=== PATIENT | female | born 1955 | race Caucasian/White ===

== ENCOUNTER 2021-01-19 08:58 | Outpatient (REF) | payer OTHER, SELFPAY ==
[2021-01-19 11:32] LABS: MANUAL DIFF FLAG NO
[2021-01-19 11:53] LABS: Eosinophils Absolute Auto 0.1 X10*3/uL (0.0-0.4); Eosinophils Percent Auto 1.5 % (0-4); Hematocrit 39.2 % (37-47); Hemoglobin 12.8 g/dl (12.0-16.0); Lymphocytes Absolute Auto 1.3 X10*3/uL (1.2-4.9); Lymphocytes Percent Auto 33.2 % (20-40); Mean Corpuscular HGB Conc 32.7 g/dl (31.0-35.0); Mean Corpuscular Hemoglobin 33.3 pg (27.0-33.0); Mean Corpuscular Volume 102.1 fL (80-98); Mean Platelet Volume 11.2 fL (9.4-12.3); Monocytes Absolute Auto 0.4 X10*3/uL (0.1-1.2); Monocytes Percent Auto 10.8 % (2-11); Neutrophils Absolute Auto 2.1 X10*3/uL (2.0-8.3); Neutrophils Percent Auto 53.5 % (45-73); Platelet Count 226 X10*3/uL (160-400); Red Blood Count 3.84 X10*6/uL (4.20-5.50); Red Cell Distribution Width 12.2 % (11.0-16.0); White Blood Count 3.9 X10*3/uL (4.8-10.8)
[2021-01-19 11:56] LABS: C Reactive Protein 0.11 mg/dL (< or = 0.50); Iron 97 mcg/dL (30-160); Percent Iron Saturation 30 % (15-50); Total Iron Binding Capacity 323 mcg/dL (228-428); Unsaturated Iron Binding 226 ug/dL
[2021-01-19 12:18] LABS: Ferritin 100 ng/mL (10-250); Thyroid Stimulating Hormone 0.57 uIU/mL (0.32-4.0); Vitamin D 25-OH Total 16.9 ng/mL (>30)
[2021-01-19 12:31] LABS: Vitamin B12 1374 pg/mL (200-900)
[2021-01-19 12:40] LABS: Erythrocyte Sedimentation Rate 14 MM/HR (0-20)
[2021-01-20 05:32] LABS: EBV-VCA IgM Ab <36.00 U/mL
== END 2021-01-19 08:59 | disposition home or self-care (01) ==
LOC: HO.MANLDS 08:58
PROVIDERS: PCP Internal Medicine; Visit Provider Physician Assistant
DX: R53.83 Other fatigue (principal)
CPT/HCPCS: 36415; 82306; 82607; 82728; 82746; 83540; 84443; 85025; 85652; 86140; 86664; 86665

== ENCOUNTER 2021-08-23 15:17 | Outpatient (REF) | payer OTHER, SELFPAY ==
--- NOTE | ~2021-08-23 | XR_ITS ---
EXAMINATION: XR SINUSES CLINICAL INFORMATION: Dizziness COMPARISON: None TECHNIQUE: 4 views of the sinuses were obtained. FINDINGS: Paranasal sinuses appear clear without air-fluid levels. Mastoid air cells are well aerated. No fractures are identified. No radiodense foreign bodies. XR/XR sinus min 3V IMPRESSION: No radiographic evidence to suggest acute sinusitis.
== END 2021-08-23 15:18 | disposition home or self-care (01) ==
LOC: HO.XRAY 15:17
PROVIDERS: PCP Internal Medicine; Visit Provider Physician Assistant
DX: R42 Dizziness and giddiness (principal)
CPT/HCPCS: 70220

== ENCOUNTER 2021-08-24 13:10 | Outpatient (REF) | payer OTHER, SELFPAY ==
--- NOTE | ~2021-08-24 | US_ITS ---
EXAMINATION: US ABDOMEN COMPLETE CLINICAL INFORMATION: Left lower quadrant pain. COMPARISON: None TECHNIQUE: Real-time imaging of the abdominal viscera. FINDINGS: PANCREAS: Normal. ABDOMINAL AORTA: The proximal, mid, and distal segments are normal in caliber. INFERIOR VENA CAVA: Visualized portions are normal. LIVER: The liver is normal in size. The liver contour is normal. Parenchymal echogenicity is normal. There is no intrahepatic biliary duct dilatation seen. Within the left hepatic lobe, a 2.7 x 3.2 x 4.4 cm heterogeneously hyperechoic, circumscribed mass is seen. Within the right hepatic lobe anteriorly, a 0.7 x 0.6 x 0.7 cm hyperechoic, circumscribed mass is seen. Within the right hepatic lobe, a 0.8 cm in maximal diameter simple cyst is seen. Within the left hepatic lobe, a 1.9 cm maximal diameter simple cyst is seen. GALLBLADDER: There is mild echogenic gallbladder sludge. The gallbladder is physiologically distended without evidence of stones, polyps, wall thickening or pericholecystic fluid. COMMON BILE DUCT: Normal in caliber measuring 0.4 cm in diameter. RIGHT KIDNEY: Normal. No hydronephrosis. No renal calculi or focal parenchymal lesions. The kidney measures 9.3 cm in maximum dimension. LEFT KIDNEY: At the interpolar aspect, a 4 mm nonobstructing calculus is seen. No hydronephrosis or focal parenchymal lesions. The kidney measures 10.4 cm in maximum dimension. SPLEEN: Normal. The spleen measures 6.4 cm in maximum dimension. FREE FLUID: None. US/US abdomen complete IMPRESSION: 1. There are hyperechoic masses within the bilateral hepatic lobes, with ultrasound features characteristic for benign hemangiomas. These are of doubtful clinical significance. If of clinical concern (i.e. history of hepatocellular disease or known malignancy), consider further evaluation with the dynamic CT or MRI. 2. Simple cysts are noted within the bilateral kidneys. 3. A 4 mm nonobstructing left renal calculus is seen. No right renal calculus is seen. No hydronephrosis is noted bilaterally.
== END 2021-08-24 13:11 | disposition home or self-care (01) ==
LOC: HO.HMGCX 13:10
PROVIDERS: PCP Internal Medicine; Visit Provider Physician Assistant
DX: R10.32 Left lower quadrant pain (principal)
CPT/HCPCS: 76700

== ENCOUNTER 2021-08-29 15:20 | Outpatient (REF) | payer OTHER, SELFPAY ==
[2021-08-29 18:33] LABS: MANUAL DIFF FLAG NO
[2021-08-29 18:39] LABS: Basophils Absolute Auto 0.1 X10*3/uL (0.0-0.2); Basophils Percent Auto 1.2 % (0-2); Eosinophils Absolute Auto 0.1 X10*3/uL (0.0-0.4); Eosinophils Percent Auto 1.9 % (0-4); Hematocrit 33.3 % (37.0-47.0); Hemoglobin 11.1 g/dl (12.0-16.0); Imm Gran Abs Auto 0.01 X10*3/uL (0.00-0.03); Imm Gran Pct Auto 0.2 % (0.0-0.4); Lymphocytes Absolute Auto 1.6 X10*3/uL (1.2-4.9); Lymphocytes Percent Auto 36.4 % (20-40); Mean Corpuscular HGB Conc 33.3 g/dl (31.0-35.0); Mean Corpuscular Hemoglobin 33.8 pg (27.0-33.0); Mean Corpuscular Volume 101.5 fL (80.0-98.0); Mean Platelet Volume 11.2 fL (9.4-12.3); Monocytes Absolute Auto 0.3 X10*3/uL (0.1-1.2); Monocytes Percent Auto 5.9 % (2-11); Neutrophils Absolute Auto 2.3 x10*3/uL (2.0-8.3); Neutrophils Percent Auto 54.4 % (45-73); Platelet Count 175 X10*3/uL (160-400); Red Blood Count 3.28 X10*6/uL (4.20-5.50); Red Cell Distribution Width 12.6 % (11.0-16.0); White Blood Count 4.3 X10*3/uL (4.8-10.8)
[2021-08-29 18:47] LABS: Alanine Aminotransferase 18 U/L (0-31); Albumin Level 3.7 g/dL (3.5-5.0); Alkaline Phosphatase 63 U/L (39-117); Anion Gap 11 (12-20); Aspartate Amino Transferase 19 U/L (5-31); Bilirubin Total 0.2 mg/dL (0.0-1.0); Blood Urea Nitrogen 24 mg/dL (9-16); Calcium 9.4 mg/dL (8.4-10.2); Carbon Dioxide 23 mmol/L (22-29); Chloride 109 mmol/L (96-108); Estimated Glomerular Filt Rate 49; Glucose Random 248 mg/dL (60-115); Iron 72 mcg/dL (30-160); Percent Iron Saturation 31 % (15-50); Potassium 3.9 mmol/L (3.3-5.1); Rheumatoid Factor < 15.0 IU/mL (<15.0); Sodium 139 mmol/L (135-145); Total Iron Binding Capacity 232 mcg/dL (228-428); Total Protein 6.4 g/dL (6.5-8.0); Unsaturated Iron Binding 160 ug/dL
[2021-08-29 19:10] LABS: Ferritin 356 ng/mL (10-250); Free T4 (Free Thyroxine) 0.86 ng/dL (0.71-1.85); Vitamin D 25-OH Total 86.7 ng/mL (>30)
[2021-08-29 19:22] LABS: Folate 16.8 ng/mL (> or = 4.0); Vitamin B12 1463 pg/mL (200-900)
[2021-08-29 19:29] LABS: Erythrocyte Sedimentation Rate 36 MM/HR (0-20)
[2021-08-30 15:26] LABS: Calcium (PTHI) 9.1 mg/dL (8.6-10.4); PTHI 22 pg/mL (14-64)
[2021-08-31 08:32] LABS: Lyme Abs Screen <0.90 index
[2021-08-31 22:37] LABS: Anti Nuclear Antibody Screen NEGATIVE (NEGATIVE)
== END 2021-08-29 15:21 | disposition home or self-care (01) ==
LOC: HO.MANLDS 15:20
PROVIDERS: PCP Physician Assistant; Visit Provider Physician Assistant
DX: R53.83 Other fatigue (principal)
CPT/HCPCS: 36415; 80053; 82306; 82607; 82728; 82746; 83540; 83970; 84439; 85025; 85652; 86038; 86039; 86140; 86431; 86617; 86618

== ENCOUNTER 2021-09-03 08:42 | Outpatient (REF) | payer OTHER, SELFPAY ==
[2021-09-03 11:07] LABS: Estimated Average Glucose 131 mg/dL; Hemoglobin A1c % 6.2 %
== END 2021-09-03 08:43 | disposition home or self-care (01) ==
LOC: HO.MANLDS 08:42
PROVIDERS: PCP Internal Medicine; Visit Provider Internal Medicine
DX: E11.9 Type 2 diabetes mellitus without complications (principal)
CPT/HCPCS: 36415; 83036

== ENCOUNTER 2021-09-28 07:40 | Outpatient (REF) | payer OTHER, SELFPAY ==
[2021-09-28 11:01] LABS: MANUAL DIFF FLAG NO
[2021-09-28 11:02] LABS: Basophils Absolute Auto 0.1 X10*3/uL (0.0-0.2); Basophils Percent Auto 1.1 % (0-2); Eosinophils Absolute Auto 0.1 X10*3/uL (0.0-0.4); Eosinophils Percent Auto 2.1 % (0-4); Hematocrit 34.3 % (37.0-47.0); Hemoglobin 11.2 g/dl (12.0-16.0); Lymphocytes Absolute Auto 1.7 X10*3/uL (1.2-4.9); Lymphocytes Percent Auto 38.9 % (20-40); Mean Corpuscular HGB Conc 32.7 g/dl (31.0-35.0); Mean Corpuscular Hemoglobin 33.2 pg (27.0-33.0); Mean Corpuscular Volume 101.8 fL (80.0-98.0); Mean Platelet Volume 10.7 fL (9.4-12.3); Monocytes Absolute Auto 0.4 X10*3/uL (0.1-1.2); Monocytes Percent Auto 8.5 % (2-11); Neutrophils Absolute Auto 2.2 x10*3/uL (2.0-8.3); Neutrophils Percent Auto 49.4 % (45-73); Platelet Count 235 X10*3/uL (160-400); Red Blood Count 3.37 X10*6/uL (4.20-5.50); Red Cell Distribution Width 14.6 % (11.0-16.0); White Blood Count 4.4 X10*3/uL (4.8-10.8)
[2021-09-28 11:41] LABS: Erythrocyte Sedimentation Rate 25 MM/HR (0-20)
[2021-09-28 11:46] LABS: Alanine Aminotransferase 17 U/L (0-31); Albumin Level 4.1 g/dL (3.5-5.0); Alkaline Phosphatase 63 U/L (39-117); Anion Gap 13 (12-20); Aspartate Amino Transferase 19 U/L (5-31); Bilirubin Total 0.5 mg/dL (0.0-1.0); Blood Urea Nitrogen 25 mg/dL (9-16); C Reactive Protein 0.17 mg/dL (< or = 0.50); Calcium 9.4 mg/dL (8.4-10.2); Carbon Dioxide 23 mmol/L (22-29); Chloride 107 mmol/L (96-108); Estimated Glomerular Filt Rate 57; Glucose Fasting 99 mg/dL (60-99); Iron 91 mcg/dL (30-160); Percent Iron Saturation 33 % (15-50); Potassium 4.3 mmol/L (3.3-5.1); Sodium 139 mmol/L (135-145); Total Iron Binding Capacity 272 mcg/dL (228-428); Total Protein 6.7 g/dL (6.5-8.0); Unsaturated Iron Binding 181 ug/dL
[2021-09-28 11:54] LABS: Rheumatoid Factor < 15.0 IU/mL (<15.0)
[2021-09-28 11:56] LABS: Ferritin 189 ng/mL (10-250); Free T4 (Free Thyroxine) 0.91 ng/dL (0.71-1.85); Thyroid Stimulating Hormone 0.99 uIU/mL (0.32-4.0); Vitamin D 25-OH Total 72.4 ng/mL (>30)
[2021-09-28 12:29] LABS: Folate > 20.0 ng/mL (> or = 4.0); Vitamin B12 918 pg/mL (200-900)
[2021-10-01 17:11] LABS: Anti Nuclear Antibody Screen NEGATIVE (NEGATIVE)
== END 2021-09-28 07:41 | disposition home or self-care (01) ==
LOC: HO.MANLDS 07:40
PROVIDERS: PCP Physician Assistant; Visit Provider Physician Assistant
DX: R53.83 Other fatigue (principal)
CPT/HCPCS: 36415; 80053; 82306; 82607; 82728; 82746; 83540; 84439; 84443; 85025; 85652; 86038; 86039; 86140; 86431

== ENCOUNTER 2022-05-14 07:41 | Outpatient (REF) | payer OTHER, SELFPAY ==
[2022-05-14 11:24] LABS: MANUAL DIFF FLAG NO
[2022-05-14 11:44] LABS: Basophils Percent Auto 0.8 % (0-2); Eosinophils Absolute Auto 0.1 X10*3/uL (0.0-0.4); Hematocrit 35.9 % (37.0-47.0); Hemoglobin 11.8 g/dl (12.0-16.0); Imm Gran Abs Auto 0.01 X10*3/uL (0.00-0.03); Imm Gran Pct Auto 0.2 % (0.0-0.4); Lymphocytes Absolute Auto 1.2 X10*3/uL (1.2-4.9); Lymphocytes Percent Auto 23.9 % (20-40); Mean Corpuscular HGB Conc 32.9 g/dl (31.0-35.0); Mean Corpuscular Hemoglobin 33.9 pg (27.0-33.0); Mean Corpuscular Volume 103.2 fL (80.0-98.0); Mean Platelet Volume 11.1 fL (9.4-12.3); Monocytes Absolute Auto 0.5 X10*3/uL (0.1-1.2); Monocytes Percent Auto 9.7 % (2-11); Neutrophils Absolute Auto 3.2 x10*3/uL (2.0-8.3); Neutrophils Percent Auto 64.4 % (45-73); Platelet Count 221 X10*3/uL (160-400); Red Blood Count 3.48 X10*6/uL (4.20-5.50); Red Cell Distribution Width 13.2 % (11.0-16.0)
[2022-05-14 12:08] LABS: Alanine Aminotransferase 15 U/L (0-31); Alkaline Phosphatase 60 U/L (39-117); Anion Gap 15 (12-20); Aspartate Amino Transferase 20 U/L (5-31); Bilirubin Total 0.4 mg/dL (0.0-1.0); Blood Urea Nitrogen 20 mg/dL (9-16); C Reactive Protein 0.12 mg/dL (< or = 0.50); Calcium 9.4 mg/dL (8.4-10.2); Carbon Dioxide 26 mmol/L (22-29); Chloride 105 mmol/L (96-108); Cholesterol 274 mg/dL; Estimated Glomerular Filt Rate 60; Gamma Glutamyl Transpeptidase 14 U/L (7-33); Glucose Random 121 mg/dL (60-115); HDL Cholesterol 104 mg/dL; LDL Cholesterol Calculated 155 mg/dl; Potassium 5.1 mmol/L (3.3-5.1); Sodium 141 mmol/L (135-145); Total Protein 6.4 g/dL (6.5-8.0); Triglycerides 75 mg/dL
[2022-05-14 12:32] LABS: Ferritin 45 ng/mL (10-250)
== END 2022-05-14 07:42 | disposition home or self-care (01) ==
LOC: HO.MANLDS 07:41
PROVIDERS: Visit Provider Physician Assistant
DX: Z00.00 Encounter for general adult medical examination without abnormal findings (principal)
CPT/HCPCS: 36415; 80053; 80061; 82728; 82977; 85025; 86140

== ENCOUNTER 2022-06-03 16:40 | Outpatient (REF) | payer OTHER, SELFPAY ==
[2022-06-03 17:42] LABS: TSH reflex Free T4 0.58 uIU/mL (0.32-4.0)
[2022-06-04 07:13] LABS: HIV Num 1 12.15 S/CO (0.00-0.99)
[2022-06-04 08:21] LABS: HIV AB/AG Nonreactive (Nonreactive); HIV Num 2 0.05 S/CO; HIV Num 3 0.05 S/CO
[2022-06-05 12:18] LABS: Transglutaminase IgA <1.0 U/mL
[2022-06-05 15:02] LABS: Immunoglobulin A 249 mg/dL (70-320)
== END 2022-06-03 16:41 | disposition home or self-care (01) ==
LOC: HO.LAB 16:40
PROVIDERS: PCP Internal Medicine; Visit Provider Internal Medicine
DX: Z11.4 Encounter for screening for human immunodeficiency virus [HIV] (principal); D64.9 Anemia, unspecified; K59.00 Constipation, unspecified
CPT/HCPCS: 36415; 82784; 84443; 86364; 87389

== ENCOUNTER 2022-11-07 09:10 | Day surgery (SDC) | payer OTHER, SELFPAY ==
[2022-11-05 13:17] VITALS: BMI 22.8
--- NOTE | 2022-11-07 09:22 | MHC.SHP ---
Pre-Procedural Eval Section A Date of Service: 11/07/22 Section B Chief Complaint: Encounter for screening for malignant neoplasm of Details of Present Illness: PMH: Hypertension kidney stone Asthma Surgical History History of gastrointestinal surgery Hx of section Hx of tonsillectomy Relevant Family History (Specify if Yes): No Present Medications: see Short Stay Collaborative assessment Allergies: Allergies Allergy/AdvReac Type Severity Reaction Status Date / Time fluticasone Allergy Severe thrush Verified 11/07/22 09:13 [From Advair Diskus] salmeterol Allergy Severe thrush Verified 11/07/22 09:13 [From Advair Diskus] Faqtuaf-UTG-HgW Reductase Allergy Severe Joint Pain Verified 11/07/22 09:13 Inhibitor beclomethasone Allergy Unknown Unknown Verified 11/07/22 09:13 [From Qvar RediHaler] Corticosteroids Allergy Unknown Unknown Verified 11/07/22 09:13 (Glucocorticoids) Review of Systems Review of Systems Comment: 10 point ROS negative Exam Exam Comment: Gen appear: No acute distress HEENT: no icterus Chest: No overt resp distress Abd: soft, nontender, nondistended Psych: Stable affect, answering questions appropriately Neuro: A/Ox3 noted to move all extremities spontaneously Ext: no peripheral edema Plan I have reviewed the history and physical and performed a pertinent physical examination on my patient. No changes have occurred unless specified. Time Spent With Patient Time: Total time managing care of this patient today ____ minutes.
--- NOTE | 2022-11-07 09:23 | W.PM.OPN ---
Operative Note Operative Note Date of Service: 11/07/22 Narrative: Procedure: Colonoscopy Indication: Screening Endoscopist: Ansley Alas MD Anesthesia Provider: Dr Angélica Messina Anesthesia type: MAC Instrument: Olympus [id number]-H190L Consent: Indication, risks vs benefits, and alternatives were discussed with the patient who gave written informed consent to proceed. EKG, pulse, pulse oximetry and blood pressure were monitored throughout the procedure. Please see anesthesia flowsheet. Procedure: The patient was brought to the procedure room and placed in the left lateral decubitus position. IV medications were administered by the anesthesia provider in attendance. A digital rectal exam was performed which was normal. The colonoscope was then inserted through the anus and advanced through the colon to the hepatic flexure. Mucosa was carefully examined under high definition white light as the instrument was slowly withdrawn in a retrograde panoramic fashion. Retroflexion was performed in rectum. The procedure was not difficult. There were no immediate obvious complications. The quality of the prep was BBPS: 1+1+N/A = inadequate. Limitations: Poor prep. Findings: Mucosa: Semi solid and liquid opaque stool was seen in the entire colon. Despite extensive flushing and suctioning, could not visualize lumen at hepatic flexure and therefore could not get around to cecum. Impression: 1. Incomplete colonoscopy due to poor prep Recommendations: - Repeat colonoscopy will be rebooked within 6 months. - Patient will be advised 2 days of CLD and 3 days of daily Miralax prior to starting split prep before the next procedure.
[2022-11-07] MEDS: Lactated Ringers 1,000 ML 50 ML IVCONT (09:32)
[2022-11-07 09:47] VITALS: BP 119/73; PULSE 84; RESP 18; TEMP 36.6; O2SAT 96
[2022-11-07 10:28] VITALS: BP 93/40; PULSE 83; RESP 18; TEMP 36.3; O2SAT 94
[2022-11-07 10:43] VITALS: BP 110/61; PULSE 78; RESP 18; TEMP 36.1; O2SAT 96
--- NOTE | 2022-11-07 11:00 | HO.ANESPROP2 ---
HPI - Anesthesia Eval Consult details Narrative: screening constipation PMFSH Active Problems Active Problems: All Active Problems (Updated 11/01/22 @ 14:55 by Cristina Hernandez RN) Anemia (Acute) Liver mass (Acute) Megaloblastic anemia (Acute) Chronic idiopathic constipation (Acute) Past Medical History Medical History Anemia Anxiety Asthma CVA (cerebral vascular accident) Depression GERD (gastroesophageal reflux disease) HTN (hypertension) Skin cancer Family History Family History Father No problems noted. Mother Breast CA Heart attack Dementia Brother Lung cancer Family history of problems with anesthesia: No Surgical History Surgical History History of gastrointestinal surgery Hx of section Hx of tonsillectomy History of Problems with Anesthesia: No Social History Social History Patient Tobacco Use Status: Never used Tobacco Are you DNR?: No Advance Directives: No Advance Directives Information Provided: Yes Nutrition Risks: No Nutritional Risk Meds Allergies Allergy/AdvReac Type Severity Reaction Status Date / Time fluticasone Allergy Severe thrush Verified 11/07/22 09:13 [From Advair Diskus] salmeterol Allergy Severe thrush Verified 11/07/22 09:13 [From Advair Diskus] Cjwhdhe-FCW-TkW Reductase Allergy Severe Joint Pain Verified 11/07/22 09:13 Inhibitor beclomethasone Allergy Unknown Unknown Verified 11/07/22 09:13 [From Qvar RediHaler] Corticosteroids Allergy Unknown Unknown Verified 11/07/22 09:13 (Glucocorticoids) Active Medications: Current Medications Lactated Ringer's (Lr) 1,000 mls @ 50 mls/hr IVCONT .Q20H JORGE LUIS Last Admin: 11/07/22 09:32 Dose: 50 mls/hr Home Medications Medication Instructions Recorded Confirmed Last Taken Type acyclovir 200 mg capsule 200 mg PO TID 06/03/22 11/01/22 Unknown History albuterol sulfate 90 mcg/actuation 2 puff inhalation Q6H PRN Wheezing 06/03/22 11/01/22 Unknown History aerosol inhaler cholecalciferol (vitamin D3) 125 125 mcg PO DAILY 06/03/22 11/01/22 Unknown History mcg (5,000 unit) capsule lisinopril 20 mg tablet 20 mg PO BID 06/03/22 11/01/22 Unknown History lorazepam 1 mg tablet 1 mg PO TID PRN Anxiety 06/03/22 11/01/22 Unknown History quercetin 500 mg capsule mg PO 06/03/22 Unknown History umeclidinium 62.5 mcg-vilanterol 1 inh inhalation DAILY 06/03/22 11/01/22 Unknown History 25 mcg/actuation powdr for inhalation (Anoro Ellipta) vitamin A palmitate 7,500 mcg 7,500 mcg PO DAILY 06/03/22 11/01/22 Unknown History (25,000 unit) capsule (A-25 (vit A palmitate)) zafirlukast 20 mg tablet 20 mg PO BID 06/03/22 Unknown History zolpidem 10 mg tablet 10 mg PO BEDTIME PRN Insomnia 06/03/22 11/01/22 Unknown History linaclotide 145 mcg capsule 145 mcg PO DAILY 11/01/22 11/01/22 Unknown History (Linzess) Exam Exam Date and Time: November 07, 2022 1100 Height,Weight and Vital Signs: Height 5 ft 4 in Weight 60.328 kg Last Vital Signs Temp 97.0 F 11/07/22 10:43 Pulse 78 11/07/22 10:43 Resp 18 11/07/22 10:43 BP 110/61 11/07/22 10:43 Pulse Ox 96 11/07/22 10:43 O2 Del Method 11/07/22 10:43 Airway Mallampati Class: II TM Dist: >3cm Neck ROM: Full Heart: rr Lungs: cta Assessment and Plan Assessment Anesthesia Assessment: Anesthesia Plan Discussed, Smoking Cess. Discussed and Chart Reviewed Final Anesthetic Review Family History of Problems with Anesthesia: No History of Problems with Anesthesia: No NPO: Yes ASA Class: II Final Preanesthetic Review: No Changes in Pt Med Stat Patient Risk: Low Procedure Risk: Low Anesthetic Plan Anesthetic Plan: MAC: Disposition: Standard PACU
== END 2022-11-07 11:16 | disposition home or self-care (01) ==
PROVIDERS: PCP Internal Medicine; Visit Provider Internal Medicine
PROC: 0DJD8ZZ Inspection of Lower Intestinal Tract, Via Natural or Artificial Opening Endoscopic (ICD-10-PCS; CPT 45378; principal; 2022-11-07 10:00)
DX: Z12.11 Encounter for screening for malignant neoplasm of colon (principal); Z91.199 Patient's noncompliance with other medical treatment and regimen due to unspecified reason; I10 Essential (primary) hypertension; N20.0 Calculus of kidney; J45.909 Unspecified asthma, uncomplicated; Z79.51 Long term (current) use of inhaled steroids; Z79.899 Other long term (current) drug therapy
CPT/HCPCS: 45378

== ENCOUNTER → 2022-11-18 15:36 | Outpatient (BNVA) | payer OTHER, SELFPAY | PROVIDERS: PCP Internal Medicine; Visit Provider Internal Medicine | DX: Z13.89 Encounter for screening for other disorder (principal) ==

== ENCOUNTER 2022-12-11 07:25 | Outpatient (REF) | payer OTHER, SELFPAY ==
[2022-12-11 11:25] LABS: MANUAL DIFF FLAG NO
[2022-12-11 12:08] LABS: Basophils Absolute Auto 0.1 X10*3/uL (0.0-0.2); Basophils Percent Auto 1.4 % (0-2); Eosinophils Absolute Auto 0.1 X10*3/uL (0.0-0.4); Eosinophils Percent Auto 2.1 % (0-4); Hematocrit 35.8 % (37.0-47.0); Imm Gran Abs Auto 0.01 X10*3/uL (0.00-0.03); Imm Gran Pct Auto 0.2 % (0.0-0.4); Lymphocytes Absolute Auto 1.6 X10*3/uL (1.2-4.9); Lymphocytes Percent Auto 36.7 % (20-40); Mean Corpuscular HGB Conc 33.5 g/dl (31.0-35.0); Mean Corpuscular Hemoglobin 35.9 pg (27.0-33.0); Mean Corpuscular Volume 107.2 fL (80.0-98.0); Mean Platelet Volume 10.9 fL (9.4-12.3); Monocytes Absolute Auto 0.4 X10*3/uL (0.1-1.2); Monocytes Percent Auto 10.1 % (2-11); Neutrophils Absolute Auto 2.1 x10*3/uL (2.0-8.3); Neutrophils Percent Auto 49.5 % (45-73); Platelet Count 250 X10*3/uL (160-400); Red Blood Count 3.34 X10*6/uL (4.20-5.50); Red Cell Distribution Width 13.4 % (11.0-16.0); White Blood Count 4.3 X10*3/uL (4.8-10.8)
[2022-12-11 12:25] LABS: Alanine Aminotransferase 17 U/L (0-31); Albumin Level 4.2 g/dL (3.5-5.0); Alkaline Phosphatase 79 U/L (39-117); Anion Gap 15 (12-20); Aspartate Amino Transferase 19 U/L (5-31); Bilirubin Total 0.4 mg/dL (0.0-1.0); Blood Urea Nitrogen 41 mg/dL (9-16); Calcium 9.6 mg/dL (8.4-10.2); Carbon Dioxide 22 mmol/L (22-29); Chloride 109 mmol/L (96-108); Cholesterol 298 mg/dL; Estimated Glomerular Filt Rate 54; Glucose Random 119 mg/dL (60-115); HDL Cholesterol 100 mg/dL; LDL Cholesterol Calculated 181 mg/dl; Potassium 5.2 mmol/L (3.3-5.1); Sodium 141 mmol/L (135-145); Total Protein 6.6 g/dL (6.5-8.0); Triglycerides 89 mg/dL
== END 2022-12-11 07:26 | disposition home or self-care (01) ==
LOC: HO.MANLDS 07:25
PROVIDERS: Visit Provider Physician Assistant
DX: Z00.00 Encounter for general adult medical examination without abnormal findings (principal); R16.0 Hepatomegaly, not elsewhere classified
CPT/HCPCS: 36415; 80053; 80061; 85025

== ENCOUNTER 2022-12-12 15:41 | Outpatient (REF) | payer OTHER, SELFPAY ==
[2022-12-12 17:19] LABS: Alanine Aminotransferase 17 U/L (0-31); Albumin Level 4.4 g/dL (3.5-5.0); Alkaline Phosphatase 94 U/L (39-117); Aspartate Amino Transferase 20 U/L (5-31); Bilirubin Direct < 0.2 mg/dL (0.0-0.5); Bilirubin Total 0.3 mg/dL (0.0-1.0); Total Protein 6.9 g/dL (6.5-8.0)
[2022-12-12 17:35] LABS: Vitamin D 25-OH Total 105.1 ng/mL (>30)
== END 2022-12-12 15:42 | disposition home or self-care (01) ==
LOC: HO.LAB 15:41
PROVIDERS: PCP Internal Medicine; Visit Provider Internal Medicine
DX: R16.0 Hepatomegaly, not elsewhere classified (principal)
CPT/HCPCS: 36415; 80076; 82306

== ENCOUNTER 2022-12-24 07:51 | Outpatient (REF) | payer OTHER, SELFPAY ==
[2022-12-24 10:56] LABS: MANUAL DIFF FLAG NO
[2022-12-24 11:19] LABS: Basophils Absolute Auto 0.1 X10*3/uL (0.0-0.2); Basophils Percent Auto 1.2 % (0-2); Eosinophils Absolute Auto 0.1 X10*3/uL (0.0-0.4); Hematocrit 31.8 % (37.0-47.0); Hemoglobin 10.5 g/dl (12.0-16.0); Imm Gran Abs Auto 0.01 X10*3/uL (0.00-0.03); Imm Gran Pct Auto 0.2 % (0.0-0.4); Lymphocytes Absolute Auto 1.4 X10*3/uL (1.2-4.9); Lymphocytes Percent Auto 35.2 % (20-40); Mean Corpuscular Hemoglobin 34.9 pg (27.0-33.0); Mean Corpuscular Volume 105.6 fL (80.0-98.0); Mean Platelet Volume 10.6 fL (9.4-12.3); Monocytes Absolute Auto 0.4 X10*3/uL (0.1-1.2); Monocytes Percent Auto 9.1 % (2-11); Neutrophils Absolute Auto 2.1 x10*3/uL (2.0-8.3); Neutrophils Percent Auto 51.3 % (45-73); Platelet Count 215 X10*3/uL (160-400); Red Blood Count 3.01 X10*6/uL (4.20-5.50); Red Cell Distribution Width 13.2 % (11.0-16.0); White Blood Count 4.1 X10*3/uL (4.8-10.8)
[2022-12-24 12:09] LABS: Alanine Aminotransferase 17 U/L (0-31); Albumin Level 3.7 g/dL (3.5-5.0); Alkaline Phosphatase 76 U/L (39-117); Anion Gap 8 (12-20); Aspartate Amino Transferase 23 U/L (5-31); Bilirubin Total 0.4 mg/dL (0.0-1.0); Blood Urea Nitrogen 35 mg/dL (9-16); C Reactive Protein 0.23 mg/dL (< or = 0.50); Calcium 8.7 mg/dL (8.4-10.2); Carbon Dioxide 27 mmol/L (22-29); Chloride 113 mmol/L (96-108); Cholesterol 262 mg/dL; Estimated Glomerular Filt Rate 50; Gamma Glutamyl Transpeptidase 17 U/L (7-33); Glucose Fasting 107 mg/dL (60-99); HDL Cholesterol 84 mg/dL; LDL Cholesterol Calculated 152 mg/dl; Potassium 4.7 mmol/L (3.3-5.1); Sodium 143 mmol/L (135-145); Total Protein 5.8 g/dL (6.5-8.0); Triglycerides 132 mg/dL
== END 2022-12-24 07:52 | disposition home or self-care (01) ==
LOC: HO.MANLDS 07:51
PROVIDERS: Visit Provider Physician Assistant
DX: Z00.00 Encounter for general adult medical examination without abnormal findings (principal); Z20.2 Contact with and (suspected) exposure to infections with a predominantly sexual mode of transmission
CPT/HCPCS: 36415; 80053; 80061; 82977; 85025; 86140

== ENCOUNTER 2023-04-24 07:02 | Day surgery (SDC) | payer OTHER, SELFPAY ==
[2023-04-21 15:31] VITALS: BMI 23.3
--- NOTE | 2023-04-23 08:56 | HO.ANESPROP2 ---
Documented by User: Kasey Rucker NP 04/23/23 08:56 HPI - Anesthesia Eval Consult details Narrative: 67yo F for Colonoscopy PMFSH Active Problems Active Problems: All Active Problems (Updated 11/18/22 @ 16:34 by Ansley Alas MD) Change in bowel habit (Acute) Colon cancer screening (Acute) Anemia (Acute) Liver mass (Acute) Megaloblastic anemia (Acute) Chronic idiopathic constipation (Acute) Past Medical History Medical History Anemia Anxiety Asthma CVA (cerebral vascular accident) Depression GERD (gastroesophageal reflux disease) HTN (hypertension) Skin cancer Family History Family History Father No problems noted. Mother Breast CA Heart attack Dementia Brother Lung cancer Family history of problems with anesthesia: No Surgical History Surgical History History of gastrointestinal surgery Hx of section Hx of colonoscopy Hx of tonsillectomy History of Problems with Anesthesia: No Social History Social History Patient Tobacco Use Status: Never used Tobacco Use of substances other than those prescribed or required for medical reasons: No Are you DNR?: No Advance Directives: No Advance Directives Information Provided: Yes Meds Allergies Allergy/AdvReac Type Severity Reaction Status Date / Time fluticasone Allergy Severe thrush Verified 04/24/23 07:25 [From Advair Diskus] salmeterol Allergy Severe thrush Verified 04/24/23 07:25 [From Advair Diskus] Mpangrx-AGX-PeI Reductase Allergy Severe Joint Pain Verified 04/24/23 07:25 Inhibitor beclomethasone Allergy Unknown Unknown Verified 04/24/23 07:25 [From Qvar RediHaler] Corticosteroids Allergy Unknown Unknown Verified 04/24/23 07:25 (Glucocorticoids) Home Medications Medication Instructions Recorded Confirmed Last Taken Type acyclovir 200 mg capsule 200 mg PO TID 06/03/22 04/24/23 Unknown History albuterol sulfate 90 mcg/actuation 2 puff inhalation Q6H PRN Wheezing 06/03/22 04/24/23 Unknown History aerosol inhaler cholecalciferol (vitamin D3) 125 125 mcg PO DAILY 06/03/22 04/24/23 Unknown History mcg (5,000 unit) capsule lorazepam 1 mg tablet 1 mg PO TID PRN Anxiety 06/03/22 04/24/23 Unknown History umeclidinium 62.5 mcg-vilanterol 1 inh inhalation DAILY 06/03/22 04/24/23 Unknown History 25 mcg/actuation powdr for inhalation (Anoro Ellipta) zafirlukast 20 mg tablet (Accolate) 20 mg PO BID 06/03/22 04/24/23 Unknown History zolpidem 10 mg tablet 10 mg PO BEDTIME PRN Insomnia 06/03/22 04/24/23 Unknown History Exam Exam Date and Time: April 23, 2023 0856 Height,Weight and Vital Signs: Height 5 ft 4 in Weight 61.689 kg Assessment and Plan Assessment Anesthesia Assessment: Chart Reviewed Final Anesthetic Review Family History of Problems with Anesthesia: No History of Problems with Anesthesia: No Documented by User: Pushpa Cavazos MD 04/24/23 08:14 PMFSH Past Medical History Medical History Anemia Anxiety Asthma CVA (cerebral vascular accident) Depression GERD (gastroesophageal reflux disease) HTN (hypertension) Skin cancer Family History Family History Father No problems noted. Mother Breast CA Heart attack Dementia Brother Lung cancer Surgical History Surgical History History of gastrointestinal surgery Hx of section Hx of colonoscopy Hx of tonsillectomy Social History Social History Patient Tobacco Use Status: Never used Tobacco Use of substances other than those prescribed or required for medical reasons: No Are you DNR?: No Advance Directives: No Advance Directives Information Provided: Yes Meds Allergies Allergy/AdvReac Type Severity Reaction Status Date / Time fluticasone Allergy Severe thrush Verified 04/24/23 07:25 [From Advair Diskus] salmeterol Allergy Severe thrush Verified 04/24/23 07:25 [From Advair Diskus] Qbmnisq-KCB-CuQ Reductase Allergy Severe Joint Pain Verified 04/24/23 07:25 Inhibitor beclomethasone Allergy Unknown Unknown Verified 04/24/23 07:25 [From Qvar RediHaler] Corticosteroids Allergy Unknown Unknown Verified 04/24/23 07:25 (Glucocorticoids) Home Medications Medication Instructions Recorded Confirmed Last Taken Type acyclovir 200 mg capsule 200 mg PO TID 06/03/22 04/24/23 Unknown History albuterol sulfate 90 mcg/actuation 2 puff inhalation Q6H PRN Wheezing 06/03/22 04/24/23 Unknown History aerosol inhaler cholecalciferol (vitamin D3) 125 125 mcg PO DAILY 06/03/22 04/24/23 Unknown History mcg (5,000 unit) capsule lorazepam 1 mg tablet 1 mg PO TID PRN Anxiety 06/03/22 04/24/23 Unknown History umeclidinium 62.5 mcg-vilanterol 1 inh inhalation DAILY 06/03/22 04/24/23 Unknown History 25 mcg/actuation powdr for inhalation (Anoro Ellipta) zafirlukast 20 mg tablet (Accolate) 20 mg PO BID 06/03/22 04/24/23 Unknown History zolpidem 10 mg tablet 10 mg PO BEDTIME PRN Insomnia 06/03/22 04/24/23 Unknown History Exam Airway Mallampati Class: II TM Dist: >3cm Neck ROM: Full Heart: rrr Lungs: cta Assessment and Plan Assessment Anesthesia Assessment: Anesthesia Plan Discussed Final Anesthetic Review NPO: Yes ASA Class: II Final Preanesthetic Review: No Changes in Pt Med Stat, Meds/Allgs Chart Reviewed, Consent Obtained/Reviewed and Anes Risks/Benef Reviewed Patient Risk: Low Procedure Risk: Low Anesthetic Plan Anesthetic Plan: MAC: Disposition: Standard PACU
[2023-04-24 07:21] VITALS: BMI 24.9
[2023-04-24 07:47] VITALS: BP 142/80; PULSE 66; RESP 16; TEMP 36.6; O2SAT 94
[2023-04-24] MEDS: Lactated Ringers 1,000 ML 100 ML IVCONT (07:48)
--- NOTE | 2023-04-24 08:26 | MHC.SHP ---
Pre-Procedural Eval Section A Date of Service: 04/24/23 Section B Chief Complaint: Encounter for screening for malignant neoplasm of Details of Present Illness: PMH: Anemia Anxiety Asthma CVA (cerebral vascular accident) Depression GERD (gastroesophageal reflux disease) HTN (hypertension) Skin cancer Surgical History History of gastrointestinal surgery Hx of section Hx of tonsillectomy Present Medications: see Short Stay Collaborative assessment Allergies: Allergies Allergy/AdvReac Type Severity Reaction Status Date / Time fluticasone Allergy Severe thrush Verified 04/24/23 07:25 [From Advair Diskus] salmeterol Allergy Severe thrush Verified 04/24/23 07:25 [From Advair Diskus] Ewojviv-YKB-YmU Reductase Allergy Severe Joint Pain Verified 04/24/23 07:25 Inhibitor beclomethasone Allergy Unknown Unknown Verified 04/24/23 07:25 [From Qvar RediHaler] Corticosteroids Allergy Unknown Unknown Verified 04/24/23 07:25 (Glucocorticoids) Review of Systems Review of Systems Comment: 10 point ROS negative Exam Exam Comment: Gen appear: No acute distress HEENT: no icterus Chest: No overt resp distress Abd: soft, nontender, nondistended Psych: Stable affect, answering questions appropriately Neuro: A/Ox3 noted to move all extremities spontaneously Ext: no peripheral edema Plan Diagnosis/Plan: Unchanged I have reviewed the history and physical and performed a pertinent physical examination on my patient. No changes have occurred unless specified. Time Spent With Patient Time: Total time managing care of this patient today ____ minutes.
[2023-04-24 09:58] VITALS: BP 145/74; PULSE 76; RESP 16; TEMP 36.3; O2SAT 98
--- NOTE | 2023-04-24 09:59 | P.OP_ITS ---
Operative Note Operative Note Date of Service: 04/24/23 Narrative: Procedure: Colonoscopy Indication: Screening Endoscopist: Ansley Alas MD Anesthesia Provider: Dr Pushpa Cavazos Anesthesia type: MAC Instrument: Olympus [id number]-H190L Consent: Indication, risks vs benefits, and alternatives were discussed with the patient who gave written informed consent to proceed. EKG, pulse, pulse oximetry and blood pressure were monitored throughout the procedure. Please see anesthesia flowsheet. Procedure: The patient was brought to the procedure room and placed in the left lateral decubitus position. IV medications were administered by the anesthesia provider in attendance. A digital rectal exam was performed which was normal. A distal attachment cap was affixed to the tip of the scope and the colonoscope was then inserted through the anus and advanced through the colon to the cecum at 80 cm,and terminal ileum. Mucosa was carefully examined under high definition white light as the instrument was slowly withdrawn in a retrograde panoramic fashion. Retroflexion was performed in rectum. The procedure was somewhat difficult due to redundant colon and looping and required repositioning and pressure to intubate the cecum. There were no immediate obvious complications. The quality of the prep was BBPS: 2+3+3 = adequate Withdrawal time 12 minutes. Limitations: No limitations. Findings: Mucosa: Mild hyperpigmentation of the colon mucosa noted otherwise normal to cecum and terminal ileum. Protruding lesions: * Medium internal hemorrhoids without stigmata of recent bleeding. Impression: 1. Melanosis coli 2. Internal hemorrhoids Recommendations: - Repeat colonoscopy in 10 years for asymptomatic colorectal cancer screening - Consider using a CF scope for future colonoscopy
[2023-04-24 10:13] VITALS: BP 149/81; PULSE 72; RESP 18; O2SAT 99
== END 2023-04-24 10:55 | disposition home or self-care (01) ==
PROVIDERS: PCP Internal Medicine; Visit Provider Internal Medicine
PROC: 0DJD8ZZ Inspection of Lower Intestinal Tract, Via Natural or Artificial Opening Endoscopic (ICD-10-PCS; CPT 45378; principal; 2023-04-24 08:40)
DX: Z12.11 Encounter for screening for malignant neoplasm of colon (principal); K63.89 Other specified diseases of intestine; K64.8 Other hemorrhoids; K21.9 Gastro-esophageal reflux disease without esophagitis; I10 Essential (primary) hypertension; D64.9 Anemia, unspecified; J45.909 Unspecified asthma, uncomplicated; Z86.73 Personal history of transient ischemic attack (TIA), and cerebral infarction without residual deficits; Z85.828 Personal history of other malignant neoplasm of skin; Z79.51 Long term (current) use of inhaled steroids; Z79.899 Other long term (current) drug therapy; Z88.8 Allergy status to other drugs, medicaments and biological substances
CPT/HCPCS: 45378; J2250

== ENCOUNTER → 2023-04-24 07:02 | Outpatient (BNV) | payer OTHER, SELFPAY | PROVIDERS: PCP Internal Medicine; Visit Provider Internal Medicine | DX: Z12.11 Encounter for screening for malignant neoplasm of colon (principal); K64.8 Other hemorrhoids; K63.89 Other specified diseases of intestine | CPT/HCPCS: 45378 ==

== ENCOUNTER 2023-10-27 07:38 | Outpatient (REF) | payer OTHER, SELFPAY ==
[2023-10-27 13:29] LABS: MANUAL DIFF FLAG NO
[2023-10-27 13:46] LABS: Basophils Percent Auto 0.9 % (0-2); Eosinophils Absolute Auto 0.1 X10*3/uL (0.0-0.4); Eosinophils Percent Auto 1.8 % (0-4); Hematocrit 38.8 % (37.0-47.0); Hemoglobin 12.5 g/dl (12.0-16.0); Imm Gran Abs Auto 0.01 X10*3/uL (0.00-0.03); Imm Gran Pct Auto 0.2 % (0.0-0.4); Lymphocytes Absolute Auto 1.2 X10*3/uL (1.2-4.9); Lymphocytes Percent Auto 27.7 % (20-40); Mean Corpuscular HGB Conc 32.2 g/dl (31.0-35.0); Mean Corpuscular Hemoglobin 32.7 pg (27.0-33.0); Mean Corpuscular Volume 101.6 fL (80.0-98.0); Mean Platelet Volume 10.5 fL (9.4-12.3); Monocytes Absolute Auto 0.4 X10*3/uL (0.1-1.2); Monocytes Percent Auto 9.8 % (2-11); Neutrophils Absolute Auto 2.6 x10*3/uL (2.0-8.3); Neutrophils Percent Auto 59.6 % (45-73); Platelet Count 260 X10*3/uL (160-400); Red Blood Count 3.82 X10*6/uL (4.20-5.50); Red Cell Distribution Width 12.5 % (11.0-16.0); White Blood Count 4.4 X10*3/uL (4.8-10.8)
[2023-10-27 14:47] LABS: Iron 59 mcg/dL (30-160); Percent Iron Saturation 27 % (15-50); Total Iron Binding Capacity 219 mcg/dL (228-428); Unsaturated Iron Binding 160 ug/dL
[2023-10-27 15:06] LABS: Ferritin 89 ng/mL (10-250)
[2023-10-27 16:33] LABS: Uric Acid 4.4 mg/dL (2.4-5.7)
[2023-10-27 17:04] LABS: Folate 8.7 ng/mL (> or = 4.0)
[2023-10-28 02:58] LABS: Vitamin B12 1421 pg/mL (200-900)
== END 2023-10-27 07:39 | disposition home or self-care (01) ==
LOC: HO.MANLDS 07:38
PROVIDERS: Visit Provider Physician Assistant
DX: D50.0 Iron deficiency anemia secondary to blood loss (chronic) (principal); M10.9 Gout, unspecified
CPT/HCPCS: 36415; 82607; 82728; 82746; 83540; 84550; 85025

== ENCOUNTER 2023-12-23 16:07 | Outpatient (REF) | payer OTHER, SELFPAY | END 2023-12-23 16:08 | disposition home or self-care (01) | LOC: HO.MANLNP 16:07 | PROVIDERS: Visit Provider Physician Assistant | DX: L03.032 Cellulitis of left toe (principal) | CPT/HCPCS: 87070; 87205 ==

== ENCOUNTER 2024-03-16 07:41 | Outpatient (REF) | payer OTHER, SELFPAY ==
[2024-03-16 13:00] LABS: MANUAL DIFF FLAG NO
[2024-03-16 13:22] LABS: Basophils Absolute Auto 0.1 X10*3/uL (0.0-0.2); Basophils Percent Auto 1.1 % (0-2); Eosinophils Percent Auto 0.4 % (0-4); Hematocrit 38.6 % (37.0-47.0); Hemoglobin 12.9 g/dl (12.0-16.0); Imm Gran Abs Auto 0.01 X10*3/uL (0.00-0.03); Imm Gran Pct Auto 0.2 % (0.0-0.4); Lymphocytes Absolute Auto 1.2 X10*3/uL (1.2-4.9); Lymphocytes Percent Auto 25.3 % (20-40); Mean Corpuscular HGB Conc 33.4 g/dl (31.0-35.0); Mean Corpuscular Hemoglobin 34.6 pg (27.0-33.0); Mean Corpuscular Volume 103.5 fL (80.0-98.0); Mean Platelet Volume 10.6 fL (9.4-12.3); Monocytes Absolute Auto 0.4 X10*3/uL (0.1-1.2); Monocytes Percent Auto 8.6 % (2-11); Neutrophils Percent Auto 64.4 % (45-73); Platelet Count 252 X10*3/uL (160-400); Red Blood Count 3.73 X10*6/uL (4.20-5.50); Red Cell Distribution Width 13.4 % (11.0-16.0); White Blood Count 4.7 X10*3/uL (4.8-10.8)
[2024-03-16 13:48] LABS: Alanine Aminotransferase 12 U/L (0-31); Alkaline Phosphatase 51 U/L (39-117); Anion Gap 12 (12-20); Aspartate Amino Transferase 22 U/L (5-31); Bilirubin Total 0.6 mg/dL (0.0-1.0); Blood Urea Nitrogen 12 mg/dL (9-16); Calcium 9.1 mg/dL (8.4-10.2); Carbon Dioxide 27 mmol/L (22-29); Chloride 101 mmol/L (96-108); Estimated Glomerular Filt Rate > 60; Glucose Random 74 mg/dL (60-115); Potassium 4.5 mmol/L (3.3-5.1); Sodium 135 mmol/L (135-145); Total Protein 6.6 g/dL (6.5-8.0)
[2024-03-16 14:08] LABS: Free T4 (Free Thyroxine) 0.92 ng/dL (0.71-1.85); Thyroid Stimulating Hormone 1.22 uIU/mL (0.32-4.0)
[2024-03-16 14:14] LABS: Parathyroid Hormone Intact 59.1 pg/mL (8.7-77.1)
[2024-03-17 08:13] LABS: Follicle Stimulating Hormone 80.4 mIU/mL; Lutenizing Hormone 49.4 mIU/mL
[2024-03-20 13:23] LABS: Progesterone 0.3 ng/mL
[2024-03-21 00:38] LABS: Estrogen 460 pg/mL
[2024-03-27 05:13] LABS: Estradiol Free 0.94 pg/mL; Estradiol, Ultrasensitive 60 pg/mL
== END 2024-03-16 07:42 | disposition home or self-care (01) ==
LOC: HO.MANLDS 07:41
PROVIDERS: Visit Provider Physician Assistant
DX: R45.86 Emotional lability (principal)
CPT/HCPCS: 36415; 80053; 82670; 82672; 82681; 83001; 83002; 83970; 84144; 84439; 84443; 85025

== ENCOUNTER 2025-07-04 08:19 | Outpatient (REF) | payer SELFPAY ==
[2025-07-04 13:22] LABS: MANUAL DIFF FLAG NO
[2025-07-04 13:33] LABS: Hematocrit 38.0 % (37.0-47.0); Hemoglobin 12.6 g/dl (12.0-16.0); Imm Gran Abs Auto 0.02 X10*3/uL (0.00-0.03); Imm Gran Pct Auto 0.4 % (0.0-0.4); Lymphocytes Absolute Auto 1.7 X10*3/uL (1.2-4.9); Mean Corpuscular HGB Conc 33.2 g/dl (31.0-35.0); Mean Corpuscular Hemoglobin 33.1 pg (27.0-33.0); Mean Corpuscular Volume 99.7 fL (80.0-98.0); NRBC Abs Auto 0.000 X10*3/uL (0.0-0.012); NRBC Pct Auto 0.0 /100WBC (0.0-0.2); Platelet Count 230 X10*3/uL (160-400); Red Blood Count 3.81 X10*6/uL (4.20-5.50); White Blood Count 4.6 X10*3/uL (4.8-10.8)
[2025-07-04 14:08] LABS: Alanine Aminotransferase 14 U/L (0-31); Albumin Level 3.9 g/dL (3.5-5.0); Alkaline Phosphatase 54 U/L (39-117); Anion Gap 11 (12-20); Aspartate Amino Transferase 27 U/L (5-31); Blood Urea Nitrogen 14 mg/dL (9-16); Calcium 8.6 mg/dL (8.4-10.2); Carbon Dioxide 27 mmol/L (22-29); Chloride 103 mmol/L (96-108); Cholesterol 247 mg/dL (<200); Estimated Glomerular Filt Rate > 60; HDL Cholesterol 88 mg/dL (>40); Iron 97 mcg/dL (30-160); Percent Iron Saturation 47 % (15-50); Potassium 4.0 mmol/L (3.3-5.1); Sodium 137 mmol/L (135-145); Total Iron Binding Capacity 208 mcg/dL (228-428); Total Protein 6.4 g/dL (6.5-8.0); Triglycerides 62 mg/dL (<150); Unsaturated Iron Binding 111 ug/dL
[2025-07-04 14:11] LABS: Ferritin 133 ng/mL (10-250)
[2025-07-04 14:23] LABS: Folate 16.1 ng/mL (> or = 4.0); Vitamin B12 1774 pg/mL (200-900)
[2025-07-04 14:32] LABS: Hemoglobin A1C 118.8014 umol/L; Total Hemoglobin (HGBA1C) 3315.3121 umol/L
== END 2025-07-04 08:20 | disposition home or self-care (01) ==
LOC: HO.MANLDS 08:19
PROVIDERS: Visit Provider Physician Assistant
DX: I10 Essential (primary) hypertension (principal); D50.0 Iron deficiency anemia secondary to blood loss (chronic); R73.01 Impaired fasting glucose
CPT/HCPCS: 36415; 80053; 80061; 82607; 82728; 82746; 83036; 83540; 85025